=== PATIENT | male | born 1980 | race Two or more races ===

== ENCOUNTER 2019-09-03 19:43 | Emergency (ER) | payer OTHER ==
[~2019-09-03] VITALS: Ht 175.3 cm; Wt 61.2 kg
[2019-09-03 19:59] VITALS: BP 137/86
== END 2019-09-03 20:35 | disposition home or self-care (01) ==
LOC: ER 19:45
DX: J40 Bronchitis, not specified as acute or chronic (principal); F17.200 Nicotine dependence, unspecified, uncomplicated; Z98.890 Other specified postprocedural states; Z60.2 Problems related to living alone